=== PATIENT | male | born 2000 | race African-American/Black ===

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

== ENCOUNTER 2019-05-05 13:10 | Emergency (ER) | payer OTHER ==
[~2019-05-05] VITALS: Ht 182.9 cm; Wt 81.8 kg
[2019-05-05] MEDS ORDERED: IBUPROFEN 400 MG TABLET PO ONE (14:30)
[2019-05-05 16:50] VITALS: BP 132/80
== END 2019-05-05 16:51 | disposition home or self-care (01) ==
LOC: EMS 13:11
DX: S63.615A Unspecified sprain of left ring finger, initial encounter (principal); W22.01XA Walked into wall, initial encounter; Y93.89 Activity, other specified; Y92.89 Other specified places as the place of occurrence of the external cause; Y99.8 Other external cause status